=== PATIENT | female | born 1955 | race Asian ===

== ENCOUNTER 2018-09-23 14:36 | Outpatient (RCR) | payer BC | END 2018-10-15 | disposition home or self-care (01) | LOC: WCC 14:36 | DX: L98.494 Non-pressure chronic ulcer of skin of other sites with necrosis of bone (principal); L59.8 Other specified disorders of the skin and subcutaneous tissue related to radiation; M27.8 Other specified diseases of jaws; Z85.810 Personal history of malignant neoplasm of tongue | CPT/HCPCS: G0277; G0463 ==

== ENCOUNTER 2018-10-18 08:15 | Outpatient (RCR) | payer BC | END 2018-11-14 | disposition home or self-care (01) | LOC: WCC 08:15 | DX: L98.494 Non-pressure chronic ulcer of skin of other sites with necrosis of bone (principal); M27.8 Other specified diseases of jaws; L59.8 Other specified disorders of the skin and subcutaneous tissue related to radiation; Z85.810 Personal history of malignant neoplasm of tongue | CPT/HCPCS: G0277 ×18 ==

== ENCOUNTER 2018-11-15 07:50 | Outpatient (RCR) | payer BC | END 2018-12-15 | disposition home or self-care (01) | LOC: WCC 07:50 | DX: L98.494 Non-pressure chronic ulcer of skin of other sites with necrosis of bone (principal); M27.8 Other specified diseases of jaws; L59.8 Other specified disorders of the skin and subcutaneous tissue related to radiation; Z85.810 Personal history of malignant neoplasm of tongue | CPT/HCPCS: G0277; G0463 ==